=== PATIENT | female | born 1955 | race Caucasian/White ===

== ENCOUNTER 2022-07-26 04:15 | Day surgery (SDC) | payer OTHER ==
[2022-07-22 10:44] VITALS: BMI 27.3
[2022-07-26] MEDS ORDERED: MIDAZOLAM HCL 2 MG/2 ML SINGLE DOSE VIAL ONE (08:50)
[2022-07-26] MEDS ORDERED: PROPOFOL 40 ML ONE (08:51)
[2022-07-26] MEDS ORDERED: DEXAMETHASONE SOD PHOSPHATE 4 MG/1 ML VIAL ONE (09:14)
[2022-07-26] MEDS ORDERED: ONDANSETRON 4 MG/2 ML VIAL ONE (09:14)
[2022-07-26] MEDS ORDERED: METOCLOPRAMIDE HCL INJECTION 10 MG/2 ML VIAL ONE (09:14)
[2022-07-26] MEDS ORDERED: ceFAZolin SODIUM 1 GM VIAL ONE (09:14)
[2022-07-26] MEDS ORDERED: LIDOCAINE HCL/PF 2% SDV 5ML VIAL ONE (09:14)
[2022-07-26] MEDS ORDERED: oxyCODONE HCL 5 MG TABLET PO PRN (09:44)
[2022-07-26] MEDS ORDERED: LACTATED RINGERS SOLUTION 1,000 ML IV SCH (09:45)
[2022-07-26 11:20] VITALS: RESP 18
[2022-07-26 11:43] VITALS: BP 133/58; PULSE 69; TEMP 98
== END 2022-07-26 12:10 | disposition home or self-care (01) ==
LOC: JASU-SURG 04:15
PROVIDERS: ATTEND Obstetrics & Gynecology
PROC: 0UDB8ZX Extraction of Endometrium, Via Natural or Artificial Opening Endoscopic, Diagnostic (ICD-10-PCS; principal; 2022-07-26 09:00)
DX: Z12.4 Encounter for screening for malignant neoplasm of cervix (principal); Z80.49 Family history of malignant neoplasm of other genital organs
CPT/HCPCS: 86850; 86900; 86901; 88305-TC; 94760